=== PATIENT | male | born 1950 | race Caucasian/White ===

== ENCOUNTER 2016-09-06 09:51 | Inpatient (IN) | payer MEDICARE, MEDICAID ==
[~2016-09-06 09:51] MED LIST: ASPIRIN325 M3 PO; BETHANECHOL CHL25 M1 PO; BETHANECHOL CHL25 MG PO; CLONAZEPAM2 M1 PO; CLONAZEPAM2 MG PO; COLACE100 M1 PO; DIPHENHYDRAMINE50 M2 PO; DIPHENHYDRAMINE50 MG PO; EFFER-K 20 MEQ20 ME1 PO; FLOMAX0.4 MG PO; FLUOXETINE HCL20 M PO; FLUOXETINE HCL20 M2 PO; FLUOXETINE HCL40 M1 PO; FLUOXETINE HCL40 MG PO; FLUPHENAZINE HC10 M1 PO; FLUPHENAZINE HC10 MG PO; FUROSEMIDE20 M1 PO; LEVAQUIN500 M1 PO; LORAZEPAM2 M1 PO; LORAZEPAM2 MG PO; MELOXICAM15 M1 PO; METHENAMINE HIPP1 G1 PO; MILK OF MAGNESIA PO; MIRALAX17 G2 PO; MULTIPLE VITAM1 EAC3 PO; MUPIROCIN22 G2 TP; OMEPRAZOLE20 M1 PO; OMEPRAZOLE20 M3 PO; POTASSIUM CHLO20 ME3 PO; POTASSIUM CHLO20 MEQ PO; TAMSULOSIN HCL0.4 M1 PO; TRIHEXYPHENIDYL2 M1 PO; TRIHEXYPHENIDYL2 MG PO; TYLENOL EXTRA500 M1 PO; TYLENOL EXTRA500 MG PO; TYLENOL325 M2 PO; ULTRAM50 M1 PO; ZYPREXA10 M1 PO; ZYPREXA10 MG PO
[2016-09-06 11:20] LABS: INR 1.1 INR (0.9-1.1); PROTHROMBIN TIME 12.3 SECONDS (9.0-13.6)
[2016-09-07 05:32] LABS: BASO % 0.1 % (0-2); EOS % 2.9 % (0-7); EOSINOPHIL ABSOLUTE COUNT 0.3 tho/cmm (0.0-0.7); HCT-HEMATOCRIT 27.8 % (36.0-53.5); HGB-HEMOGLOBIN 8.9 gm/dl (13.5-17.0); IMMATURE GRANULOCYTES ABSOLUTE 0.01 tho/cmm (0-0.03); IMMATURE GRANULOCYTES PERCENT 0.1 % (0-0.3); LYMPH % 16.5 % (20-45); LYMPH ABSOLUTE COUNT 1.4 tho/cmm (0.8-4.5); MCH (MEAN CORPUSCULAR HGB) 28.7 pg (28.0-32.0); MCV (MEAN CELL VOLUME) 89.7 fl (82.0-96.0); MEAN PLATELET VOLUME 9.3 cmc (9.4-12.4); MONO % 8.3 % (0-12); MONOCYTE ABSOLUTE COUNT 0.7 tho/cmm (0.0-1.2); NEUTROPHIL ABSOLUTE COUNT 6.3 tho/cmm (1.6-8.0); NEUTROPHIL-AUTOMATED 6.3 tho/cmm (1.6-8.0); NEUTROPHILS % 72.1 % (40-80); PLATELET COUNT 221 tho/cmm (150-450); RED CELL DISTRIBUTION WIDTH 13.7 % (12.4-16.4); WHITE BLOOD COUNT 8.7 tho/cmm (4.0-10.0)
[2016-09-07 05:38] LABS: INR 1.1 INR (0.9-1.1); PROTHROMBIN TIME 12.7 SECONDS (9.0-13.6)
[2016-09-07 05:46] LABS: ANION GAP 11 mmol/L (0-20); BLOOD UREA NITROGEN 9 mg/dl (6-24); CALCIUM 7.7 mg/dl (8.5-10.5); CARBON DIOXIDE-VENOUS 30 mmol/L (22-32); CHLORIDE 98 mmol/l (96-110); CREATININE 0.74 mg/dl (0.60-1.30); GLUCOSE 121 mg/dL (70-110); POTASSIUM 3.5 mmol/L (3.7-5.1); SODIUM 135 mmol/L (135-145); eGFR VALUE FOR BLACK >90 mL/Min
== END 2016-09-09 13:05 | DRG 470 ==
LOC: SHSC 09:51 → ORE 12:22 → PACU 14:21 → 5EA 15:35
PROVIDERS: Family Medicine; ADMIT Orthopaedic Surgery Foot and Ankle Surgery
PROC: 0SRC0J9 Replacement of Right Knee Joint with Synthetic Substitute, Cemented, Open Approach (ICD-10-PCS; principal; 2016-09-06)
DX: M17.11 Unilateral primary osteoarthritis, right knee (principal); D62 Acute posthemorrhagic anemia; K21.9 Gastro-esophageal reflux disease without esophagitis; F41.9 Anxiety disorder, unspecified; N40.0 Benign prostatic hyperplasia without lower urinary tract symptoms; K59.00 Constipation, unspecified; F20.9 Schizophrenia, unspecified
CPT/HCPCS: C1713; C1776; J0171; J0690; J1885; J2270; J2795